=== PATIENT | male | born 1970 | race Caucasian/White ===

== ENCOUNTER 2019-01-05 10:15 | Outpatient (REF) | payer BC, SELFPAY ==
[2019-01-05 21:09] LABS: Anion Gap 8.8 mmol/L (3-11); BUN 14 mg/dL (7-18); CO2 28.2 mmol/L (21.0-32.0); CREATININE 1.04 mg/dL (0.70-1.30); Calcium 8.6 mg/dL (8.5-10.1); Chloride 105 mmol/L (98-107); Cholesterol 154 mg/dL (50-200); Glucose 93 mg/dL (70-100); HDL Cholesterol 31 mg/dL (40-60); LDL CHOLESTEROL 65 mg/dL (<100); Potassium 4.4 mmol/L (3.5-5.1); Sodium 142 mmol/L (136-145); Triglyceride 372 mg/dL (30-150)
== END 2019-01-05 10:35 ==
LOC: NCHCN 10:15
PROVIDERS: PCP Specialist/Technologist Athletic Trainer; Visit Provider Specialist/Technologist Athletic Trainer
DX: Z00.00 Encounter for general adult medical examination without abnormal findings (principal); I10 Essential (primary) hypertension
CPT/HCPCS: 80048; 80061; 83721

== ENCOUNTER 2019-11-16 13:30 | Emergency (ER) | payer BC, SELFPAY ==
[2019-11-16 13:37] VITALS: BP 172/107; PULSE 108; RESP 20; TEMP 36.7; O2SAT 98
--- NOTE | 2019-11-16 13:50 | ED.GENADUL_ITS ---
Discharge Plan Disposition Patient Disposition: HOME Condition: Good Discharge Details Chief Complaint: Orthopedic Clinical Impression: Thumb pain Primary Care Provider: Michele Jacinto ED Provider: Patti Messina Home Meds and New Rx's Prescriptions: Continued ibuprofen 200 MG capsule 800 mg PO PRN PRNRF: 0 cyclobenzaprine 10 MG tablet 10 mg PO TID PRN PRN (Reason: Spasms) Qty: 20 RF: 0 losartan-hydrochlorothiazide 50-12.5 mg Tablet PO DAILY RF: 0 lamotrigine 100 mg Tablet 100 mg PO DAILY RF: 0 Discharge Instructions Instructions: Finger Sprain (ED) Additional Instructions: Encourage rest, ice, elevation. Tylenol and/or ibuprofen as needed for discomfort. May continue with the splint will pain persist. Please call orthopedics to schedule follow-up appointment. If you develop new/worsening symptoms please seek care urgently once again. Stand Alone Forms: Work Release Referrals: Michele Jacinto [Primary Care Provider] - Timothy Bowles MD [ [facility] STAFF PHYSICIAN] - Discharge Data Discharge Date/Time-TO BE ENTERED AT DEPARTURE: 11/16/19 15:33 Medical Decision Making Patient is a 41-year-old nqjns-aeed-sdilgmrb male presenting today with chief complaint of right thumb pain. He reports the pain has been ongoing for the past 6 weeks. States that he fell on his outstretched right hand prior to the onset of discomfort. Since that time, he does have been having pain primarily at the base of the thumb. 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 This does however make difficult for him to be able to remove the top to soda bottle. On exam, patient is resting comfortably. No notable deformity or swelling. No pain elicited with palpation. He has full range of motion. Ligamentously intact. Negative de Quervain's. No pain with axial loading. Patient indicates the palmar base of the thumb extending down towards the snuffbox is area of discomfort. No pain elicited with palpation of the snuf box itself. He does have a incision on the radial side of the wrist from excision of ganglion cyst. This is near the area of discomfort. Plan for imaging. Will continue on navicular view. FINDINGS: No definite acute fracture or dislocation is present. Tiny densities are seen the radial aspect of the navicular. These are indeterminate in acuity. The soft tissues are unremarkable. IMPRESSION: No acute fracture or dislocation. FINDINGS: No acute fracture or dislocation is present. The soft tissues are unremarkable. IMPRESSION: No acute fracture or dislocation Discussed these findings with the patient. I reexamined him I am unable to find a definitive area of his discomfort. He is indicating around the scaphoid areas next tenderness present any pain snuffbox palpation. Again seems to be ligamentously intact, able to go flex and extend against resistance. Does not have findings suggestive here discomfort. However, given the severity of the patient's discomfort and that this is persisted over 6 weeks, will refer to orthopedics. Rest, ice, elevation. We will put the patient in thumb spica to help with comfort. Work note given at patient's request. All of his questions and concerns were addressed and he is in agreement with this plan. HPI General Mode of arrival: ambulatory . Date/Time Provider Initiated Documentation: 11/16/19 13:50 . Limitations to Documentation: no limitations . Information obtained by: patient and RN notes reviewed . History of Present Illness 49 year old M presents to the emergency department with the chief complaint of right thumb pain, described as moderate, with intensity rated at 5. Quality is described as aching, and is localized to the right and upper extremity. Patient reports no radiation. Patient started experiencing this week(s) (6) and it has been constant. Immobilization improves symptom(s), Movement worsens symptoms . Patient notes no other symptoms.. Patient did receive the following treatments prior to arrival, none Related Data Home Medications Medication Instructions Recorded Confirmed cyclobenzaprine 10 mg PO TID PRN PRN #20 tab 08/03/13 11/16/19 ibuprofen 800 mg PO PRN PRN 08/03/13 11/16/19 lamotrigine 100 mg PO DAILY 11/16/19 11/16/19 losartan-hydrochlorothiazide tab PO DAILY 11/16/19 Previous Rx's Medication Instructions Recorded cyclobenzaprine 10 mg PO TID PRN PRN #20 tab 08/03/13 Allergies Allergy/AdvReac Type Severity Reaction Status Date / Time No Known Allergies Allergy Unverified 11/16/19 13:39 General Stated Complaint: Orthopedic DIYA: 4 Review of Systems Constitutional Constitutional: Reports as per HPI, Denies chills, Denies fever(s), Denies headache(s) and Denies weakness ENT Ears, Nose, Mouth, and Throat: Denies headache(s) Cardiovascular Cardiovascular: Reports as per HPI Respiratory Respiratory: Reports as per HPI and Denies cough Musculoskeletal Musculoskeletal: Reports as per HPI and Denies tingling Integumentary/Breasts Skin/Breast: Reports as per HPI, Denies rash and Denies wounds Neurologic Neurologic: Reports as per HPI, Denies headache(s), Denies tingling, Denies paresthesias and Denies weakness [facility] Social History Smoking/Tobacco Use Status: Current every day Tobacco Type: smokeless tobacco Alcohol Intake: current Alcohol Intake frequency: 0-2 drinks per day Drug use: Never Substance use type: does not use Do you feel safe at home: Yes Do you feel safe in your relationship?: Yes Exam Const General: cooperative, healthy appearing, comfortable, no acute distress, well developed and well groomed Nutritional Appearance: average body habitus and well nourished Orientation: alert and awake Resp Effort & Inspection: normal respiratory effort, able to speak in complete sentences and no respiratory distress Cardio Rate: regular rate Rhythm: regular rhythm Skin General skin exam: no rashes or lesions noted Lesions: no lesions Rashes: no rashes Trauma: no lacerations or abrasions Neuro General: alert and awake Cognition: normal cognition Speech: speech normal Gait: normal gait Motor: muscle tone normal throughout Sensory Exam: no sensory deficits noted Extrem Right upper extremity: normal to inspection, full ROM, normal capillary refill, no joint enlargement, wrist Details: normal to inspection and normal ROM; no tenderness and no swelling and hand Details: normal to inspection, normal capillary refill, neuromotor exam normal, neurosensory exam normal, tendon exam normal, vascular exam Details: radial pulse present and normal capillary refill, normal ROM of fingers and no swelling; no tenderness (patient indicates base of thumb as area of pain but none with palpation), no unusual warmth, no swelling, no ecchymosis and no crepitus; no edema Psych Appearance: grossly normal and well kempt Mental Status: mental status grossly normal Speech and Movement: speech and movement normal Course Vital Signs Vital signs: Vital Signs Temperature 36.7 C 11/16/19 13:37 Pulse 108 H 11/16/19 13:37 Respiratory Rate 20 11/16/19 13:37 Blood Pressure 172/107 H 11/16/19 13:37 Pulse Oximetry 98 11/16/19 13:37 Temperature 36.7 C 11/16/19 13:37 Temperature Source Temporal Artery Scan 11/16/19 13:37 Pulse 108 H 11/16/19 13:37 Respiratory Rate 20 11/16/19 13:37 Respiratory Effort Non-Labored 11/16/19 13:41 Blood Pressure 172/107 H 11/16/19 13:37 Blood Pressure Position Sitting 11/16/19 13:37 Pulse Oximetry 98 11/16/19 13:37 Oxygen Delivery Method Room Air 11/16/19 13:37 Oxygen Flow Rate 0 11/16/19 13:37 Pain Level 5 11/16/19 13:41
--- NOTE | 2019-11-16 14:25 | DI.RAD_ITS ---
EXAM: XR WRIST RT LIMITED INDICATION: FALL ON OUTSTRETCHED HAND, PAIN AT BASE OF THUMB COMPARISON: No exams were available for comparison TECHNIQUE: 2D digital imaging was performed. FINDINGS: No definite acute fracture or dislocation is present. Tiny densities are seen the radial aspect of t he navicular. These are indeterminate in acuity. The soft tissues are unremarkable. IMPRESSION: No acute fracture or dislocation.
--- NOTE | 2019-11-16 14:26 | DI.RAD_ITS ---
EXAM: XR THUMB RT INDICATION: FALL ON OUTSTRETCHED HAND, PAIN AT BASE OF THUMB. COMPARISON: No exams were available for comparison TECHNIQUE: 2D digital imaging was performed. FINDINGS: No acute fracture or dislocation is present. The soft tissues are unremarkable. IMPRESSION: No acute fracture or dislocation.
== END 2019-11-16 15:33 | disposition home or self-care (01) ==
PROVIDERS: Emergency Provider Physician Assistant; PCP Specialist/Technologist Athletic Trainer
DX: M25.541 Pain in joints of right hand (principal); W19.XXXA Unspecified fall, initial encounter
CPT/HCPCS: 29125; 99284; 73100; 73140; 99283; L3807

== ENCOUNTER 2021-01-17 15:13 | Outpatient (REF) | payer OTHER, SELFPAY ==
[2021-01-17 16:17] LABS: Anion Gap 8.4 mmol/L (3-11); BUN 17 mg/dL (7-18); CO2 29.6 mmol/L (21.0-32.0); Calcium 9.1 mg/dL (8.5-10.1); Chloride 102 mmol/L (98-107); Cholesterol 189 mg/dL (<200); Glucose 94 mg/dL (74-106); HDL Cholesterol 32 mg/dL (40-60); Sodium 140 mmol/L (136-145); Triglyceride 592 mg/dL (<150)
[2021-01-17 16:29] LABS: LDL CHOLESTEROL 69 mg/dL (<100)
== END 2021-01-17 15:14 | disposition home or self-care (01) ==
LOC: NCHCN 15:13
PROVIDERS: PCP Specialist/Technologist Athletic Trainer; Visit Provider Nurse Practitioner Family
DX: I10 Essential (primary) hypertension (principal)
CPT/HCPCS: 80048; 80061; 83721

== ENCOUNTER 2021-01-23 01:19 | Outpatient (CLI) | payer OTHER, SELFPAY ==
--- NOTE | 2021-01-23 | ETT_ITS ---
APPROVED REPORT Exam: Exercise Treadmill Patient Location: Out-Patient Room/Bed: Stress Nurse: Nadeen Childs RN Ordering Provider:BREANNA CALLEJAS, Contact Number: [phone] BMI: 30.55 Baseline Rhythm: Sinus Rhythm Indications: Chest tightness, hypertension, h/o hypertriglyceridemia Medical History Medical History: Hypertension, headaches Cardiac Medications: Losartan, hydrochlorothiazide, lamotrigine Allergies: NKA Cardiac Risk Factors: Hypertension Previous Cardiac Procedures: None Pretest Chest Pain Characteristics: Chest tightness 3/, pt's baseline Exercise History: Sedentary Physical Disabilities: None Lung Sounds: Clear to auscultation Heart Sounds: Regular Stress Test Details Rest Stress HR Resting HR Supine: 94 bpm Max Heart Rate (APMHR): 171 bpm Resting HR Standin bpm Target HR (85% APMHR): 145 bpm Max HR Achieved: 143 bpm % of APMHR: 83 Recovery HR: 92 bpm HR response to stress: Normal HR response to stress BP Resting BP Supine: 142/84 mmHg Resting BP Standin/90 mmHg Max BP: 176/84 mmHg Recovery BP: 148/90 mmHg BP response to stress: Normal blood pressure response to stress. ECG Resting ECG: Sinus Rhythm Ectopy: None Stress ECG: Sinus Tachycardia ST Change: No significant ST segment changes noted Arrhythmia: None Recovery ECG: Sinus Rhythm Recovery ST Change: No significant ST segment changes noted Recovery Arrhythmia: None Clinical Reason for Termination: Chest pain/Anginal equivalent Stress Symptoms: Chest pain Exercise duration: 6 min45 sec Highest Stage Reached: 3 Exercise capacity: 8.19 METs Luther Treadmill Score: -2 Rate Pressure Product: [id number] Stress ECG Conclusion 1. The patient exercised for 7 minutes (8 METS). 2. The patient had normal blood pressure response to exercise. 3. The patient reached 83% of maximal predicted heart rate which is just below the goal of 85%. Rate -pressure product was 23,000 representing a moderate intensity stress. 4. At this level of stress, there were no changes in the ECG suggestive of ischemia. The patient, zach silveira, developed exercise limiting chest pain for which the test was stopped. Luther Treadmill Score is -2 which is Moderate risk. Stress Test Summary STAGE Time (mins) Speed (mph) Grade (%) HR BP SYMPTOMS METS Supine 94 142/84 chest tightness 3/10 Standing 100 138/90 1 3 1.7 10 121 140/88 4.6 2 6 2.5 12 141 162/84 sharp chest pain 6/10 7 3 9 3.4 14 143 10.2 1 min recovery 106 176/84 chest tightness 3/10 3 min recovery 103 160/88 6 min recovery 92 148/90 Pt reported baseline chest tightness 3/10. During stage 3 of exercise pt reached for his chest and c/ o sharp pain 6/10. Exercise test stopped. During first minute of recovery pt reported symptom resolve d back to baseline of 3/10 chest tightness.
== END 2021-01-23 01:39 ==
PROVIDERS: PCP Nurse Practitioner Family; Visit Provider Nurse Practitioner Family
DX: R07.89 Other chest pain (principal); I10 Essential (primary) hypertension
CPT/HCPCS: 93017

== ENCOUNTER 2021-01-31 20:23 | Outpatient (REF) | payer OTHER, SELFPAY ==
[2021-01-31 19:57] LABS: ALT 80 U/L (16-63); AST 44 U/L (15-37); Albumin 4.3 g/dL (3.4-5.0); Alkaline Phosphatase 73 U/L (46-116); Bilirubin, Direct 0.3 mg/dL (0.0-0.2); TSH 4.85 uIU/mL (0.36-3.74); Total Protein 8.1 g/dL (6.4-8.2)
== END 2021-01-31 20:24 | disposition home or self-care (01) ==
LOC: NCHCN 20:23
PROVIDERS: PCP Nurse Practitioner Family; Visit Provider Nurse Practitioner Family
DX: E80.4 Gilbert syndrome (principal); R07.89 Other chest pain
CPT/HCPCS: 80076; 84443

== ENCOUNTER 2021-02-20 13:09 | Outpatient (REF) | payer OTHER, SELFPAY ==
[2021-02-20 15:50] LABS: TSH (W/Ref FT4) 8.33 uIU/mL (0.36-3.74)
[2021-02-20 17:47] LABS: FREE T4 0.87 ng/dL (0.76-1.46)
== END 2021-02-20 13:10 | disposition home or self-care (01) ==
LOC: NCHCN 13:09
PROVIDERS: PCP Nurse Practitioner Family; Visit Provider Nurse Practitioner Family
DX: R94.6 Abnormal results of thyroid function studies (principal)
CPT/HCPCS: 84439; 84443

== ENCOUNTER 2021-02-23 00:41 | Outpatient (CLI) | payer OTHER, SELFPAY ==
--- NOTE | 2021-02-23 08:21 | DI.US_ITS ---
APPROVED REPORT EXAM: Comprehensive 2D, Doppler, and color-flow Echocardiogram Patient Location: Out-Patient Adoption Agent: Amelia Edwards RDCS (AE) Indications: Chest pain, Abnormal ETT, Cardiac Catheterization Other Information Study Quality: Good Conclusion Left Ventricle : The left ventricle is normal size. The left ventricular systolic function is normal. The left ventricular ejection fraction is within the normal range. There is normal left ventricular wall thickness. There is normal LV segmental wall motion. The left ventricular diastolic function is normal. LVEF is 60%. Right Ventricle : The right ventricle is normal size. The right ventricular systolic function is norm al. The RVSP is 21.8mmHg. Atria : The left atrium size is normal. The right atrium size is normal. Valves: No hemodynamically significant valvular lesions. Great Vessels : The aortic root is normal in size. The ascending aorta is normal in size. Aortic arch is normal in caliber. IVC is normal in size and collapses >50% with inspiration. Wall motion Left Ventricle The left ventricle is normal size. The left ventricular systolic function is normal. The left ventric ular ejection fraction is within the normal range. There is normal left ventricular wall thickness. T here is normal LV segmental wall motion. The left ventricular diastolic function is normal. There is no ventricular septal defect visualized. LVEF is 60%. Right Ventricle The right ventricle is normal size. The right ventricular systolic function is normal. The RVSP is 21 .8mmHg. Atria The left atrium size is normal. The right atrium size is normal. The interatrial septum is intact wit h no evidence for an atrial septal defect. Aortic Valve The aortic valve is normal in structure. Aortic valve is trileaflet. There is no aortic valvular sten osis. No aortic regurgitation is present. Mitral Valve The mitral valve is normal in structure. No evidence of mitral valve stenosis. Trace mitral regurgita tion. Tricuspid Valve The tricuspid valve is normal in structure. There is no tricuspid valve stenosis. Trace tricuspid reg urgitation. Pulmonic Valve The pulmonary valve is normal in structure. There is no pulmonic valvular stenosis. Trace pulmonic re gurgitation. Great Vessels The aortic root is normal in size. The ascending aorta is normal in size. Aortic arch is normal in ca liber. IVC is normal in size and collapses >50% with inspiration. Pericardium There is no pericardial effusion. 2D Dimensions IVSD d PLAX 0.87 cm M: 0.6-1.2 LV Vol A2C d MOD 93.8 mL LVPW d PLAX 0.89 cm M: 0.6 - 1.2 LV Vol A4C d MOD 105.8 mL LVID d PLAX 4.61 cm M: 4.2 - 5.8 LA vol/ BSA A2C s A-L 16.2 mL/m2 LVDs 3.10 cm M: 2.5 - 4.0 LA vol/ BSA A4C s A-L 11.5 mL/m2 Ao Root d 2.57 cm M: 3.1 - 3.7 LA Vol/ BSA Biplane s A-L 13.7 mL/m2 RA Area A4C 11.77 cm2 LA Area A4C s MOD 11.29 cm2 RA Vol/ BSA A4C s A-L 12.3 mL/m2 LA Area A2C s MOD 13.46 cm2 Ao Asc Diam d 3.00 cm M: 2.6 - 3.4 LV EF A4C MOD 60.0 % LV EF Teichholz 60.0 % LV EF A2C MOD 60.2 % LVEF (Guadarrama's) 58.23 % M: 52 - 72 LV EF Biplane MOD 58.2 % LV Volume 76.13 mL M: 62 - 150 SV 59.62 mL LV Volume Index 37.13 mL/m2 M: 34 - 74 SV Index 29.05 mL/m2 LV Vol Biplane MOD 102.4 mL FS 31.85 % M-Mode TAPSE 2.17 cm (M/F) >1.7 LV Diastology MV E' medial 0.077 (>0.07 m/s) E/A Ratio 1.1 LV E/e MED 7.30 (<14) MV E Vmax 0.56 (0.4-1.3 m/s) MV E' lateral 0.095 (>0.1 m/s) MV A Vmax 0.50 (0.4-1.3 m/s) LV E/e LAT 5.85 (<14) MV E/A Ratio 1.05 MV E/E' medial 7.31 MV E/E' lateral 5.88 Aortic Valve LVOT Area 3.02 cm2 AoV Area Vmax 2.19 cm2 LVOT Vmax 0.99 m/s AoV Area/ BSA (Vmax) 1.07 cm2/m2 LVOT Mean Ld. 0.61 m/s DEMAR Mean Ld. 1.85 cm2 LVOT Peak Grad 3.9 mmHg DEMAR Mean Ld. Index 0.90 cm2/m2 LVOT Mean Grad 1.8 mmHg LVOT VTI 0.183 m LVOT Diam s 1.95 cm AoV Vmax 1.36 m/s Velocity Ratio 0.72 AoV Mean Ld. 0.99 m/s AoV Peak Grad 7.4 mmHg LVOT SV 55.35 mL AoV Mean Grad 4.2 mmHg AoV VTI 0.249 m AoV Area VTI 2.22 cm2 AoV Area/ BSA (VTI) 1.08 cm/m2 Mitral Valve MV DT 309 (160-240 msec) MV PHT 90 msec MV Area PHT 2.45 cm2 Pulmonary Valve PV Vmax 1.41 (0.5-1.5 m/s) RVOT Peak Gr. 1.84 mmHg PV Peak Grad 8.0 mmHg RVOT Mean Gr. 0.90 mmHg PV Mean Grad 3.8 mmHg RVOT VTI 0.134 m PV VTI 0.231 m RVOT Vmax 0.68 m/s Tricuspid Valve TR Peak Grad 18.8 mmHg TR Vmax 2.17 m/s RA Pressure 3.00 mmHg RVSP (TR) 21.8 mmHg
== END 2021-02-23 01:01 ==
PROVIDERS: PCP Nurse Practitioner Family; Visit Provider Nurse Practitioner Family
DX: R07.9 Chest pain, unspecified (principal); R94.39 Abnormal result of other cardiovascular function study; Z98.61 Coronary angioplasty status
CPT/HCPCS: 93306

== ENCOUNTER 2021-05-08 14:56 | Outpatient (REF) | payer OTHER, SELFPAY ==
[2021-05-08 20:30] LABS: TSH (W/Ref FT4) 3.22 uIU/mL (0.36-3.74)
== END 2021-05-08 14:57 | disposition home or self-care (01) ==
LOC: NCHCN 14:56
PROVIDERS: PCP Nurse Practitioner Family; Visit Provider Nurse Practitioner Family
DX: R94.6 Abnormal results of thyroid function studies (principal)
CPT/HCPCS: 84443

== ENCOUNTER 2022-05-14 16:12 | Outpatient (REF) | payer BC, SELFPAY ==
[2022-05-14 15:28] LABS: Anion Gap 10.7 mmol/L (3-11); BUN 15 mg/dL (7-18); CO2 27.3 mmol/L (21.0-32.0); CREATININE 1.3 mg/dL (0.70-1.30); Calcium 9.3 mg/dL (8.5-10.1); Chloride 101 mmol/L (98-107); FREE T4 0.86 ng/dL (0.76-1.46); Glucose 144 mg/dL (74-106); Potassium 3.8 mmol/L (3.5-5.1); Sodium 139 mmol/L (136-145); TSH 5.64 uIU/mL (0.36-3.74)
== END 2022-05-14 16:13 | disposition home or self-care (01) ==
LOC: NCHCN 16:12
PROVIDERS: PCP Nurse Practitioner Family; Visit Provider Nurse Practitioner Family
DX: I10 Essential (primary) hypertension (principal)
CPT/HCPCS: 80048; 84439; 84443

== ENCOUNTER 2022-07-30 15:08 | Outpatient (REF) | payer BC, SELFPAY ==
[2022-07-30 19:37] LABS: TSH (W/Ref FT4) 4.36 uIU/mL (0.36-3.74)
[2022-07-30 19:53] LABS: FREE T4 0.93 ng/dL (0.76-1.46)
== END 2022-07-30 15:09 | disposition home or self-care (01) ==
LOC: NCHCN 15:08
PROVIDERS: PCP Nurse Practitioner Family; Visit Provider Nurse Practitioner Family
DX: R94.6 Abnormal results of thyroid function studies (principal)
CPT/HCPCS: 84439; 84443

== ENCOUNTER 2022-11-13 14:48 | Outpatient (REF) | payer BC, SELFPAY ==
[2022-11-14 16:21] LABS: Lamotrigine 2.3 mcg/mL (3.0-15.0)
== END 2022-11-13 14:49 | disposition home or self-care (01) ==
LOC: NCHCN 14:48
PROVIDERS: PCP Nurse Practitioner Family; Visit Provider Nurse Practitioner Family
DX: Z51.81 Encounter for therapeutic drug level monitoring (principal)
CPT/HCPCS: 80175

== ENCOUNTER 2022-11-15 01:17 | Outpatient (CLI) | payer BC, SELFPAY ==
--- NOTE | 2022-11-15 | DI.RAD_ITS ---
Exam(s) XR CERVICAL SPINE COMP 4-5V EXAM: XR CERVICAL SPINE COMP 4-5V CLINICAL HISTORY: NECK STIFFNESS, M43.6, NECK PAIN, M542,CHRONIC,? OA. TECHNIQUE: 2D digital imaging was performed. COMPARISON: No exams were available for comparison FINDINGS: Seven views: There is no evidence of fracture, listhesis, nor offset of the spinal laminar line. All the disc spa jaz exhibit normal height although there is mild anterior osseous lipping at C 5-6 noted. There are no Luschka joint osteophytes evident. No obvious facet arthropathy. There appear to be bilateral C7 cervical ribs. IMPRESSION: DATA REPOSITORY: RADIATION DOSE DELIVERED:
== END 2022-11-15 01:37 ==
LOC: DI 01:18
PROVIDERS: PCP Nurse Practitioner Family; Visit Provider Nurse Practitioner Family
DX: M43.6 Torticollis (principal); M54.2 Cervicalgia
CPT/HCPCS: 72050

== ENCOUNTER 2022-11-27 01:36 | Outpatient (CLI) | payer BC, SELFPAY ==
--- NOTE | 2022-11-27 | DI.US_ITS ---
Exam(s) US BREAST LT COMPLETE MAMMO DIAGNOSTIC BI EXAM: MAMMO DIAGNOSTIC BI and U/S breast LT complete CLINICAL HISTORY: DIAGNOSTIC, LT BREAST PAIN, N64.4. TECHNIQUE: Craniocaudal and mediolateral oblique Full Field Digital Mammography views with Computer Aided Diagnosis followed by Tomosynthesis and left breast ultrasound. COMPARISON: No priors for comparison. FINDINGS: Mammography/Tomosynthesis: Masses/Architectural Distortion: There is a small amount of breast tissue in the retroareolar region bilaterally, left greater than right. This is consistent with mild gynecomastia. Microcalcifictions: No suspicious pleomorphic-type are seen. Skin Thickening/Nipple Retraction: None. Complete left breast US: Echotexture: Normal appearance of the glandular tissue. Shadowing: No suspicious foci. Cyst: None. Solid lesions: None seen. Ductal dilation: None. IMPRESSION: 1. No evidence of malignancy is noted. 2. Findings are most suggestive of bilateral gynecomastia, left greater than right. 3. The findings were discussed with the patient on the date of the examination. BI-RADS Category 2 - Benign Findings Breast Density - Category A - Almost entirely fatty Breast density Category C or D implies that the patient has dense breast tissue. Dense breast tissue can make it harder to find cancer on a mammogram. Dense breast tissue is also associated with an incr eased risk of breast cancer. This information about the result of the mammogram report was provided to the patient to raise their awareness. Use this report when you speak with the patient about their risks for breast cancer, which includes their family history. At that time, you may recommend additional screening tests (Ultrasoun d or MRI) as these tests may add significant information. A negative radiographic report should not delay biopsy if a dominant or clinically suspicious mass is present. Up to ten percent of cancers are not identified on mammography. A negative report may reinforce clinical impression. Adenosis and dense breasts may obscure an underlying neoplasm. False positive reports average 6 to 10%. Patient will receive a letter notifying them of these results.
== END 2022-11-27 01:56 ==
LOC: DI 01:36
PROVIDERS: PCP Nurse Practitioner Family; Visit Provider Nurse Practitioner Family
DX: N64.4 Mastodynia (principal)
CPT/HCPCS: 76642; 77062; 77066; G0279

== ENCOUNTER 2022-12-21 13:30 | Outpatient (REF) | payer BC, SELFPAY ==
[2022-12-21 15:54] LABS: TSH (W/Ref FT4) 8.46 uIU/mL (0.36-3.74)
[2022-12-21 16:33] LABS: HCG Qual (Serum) Negative
[2022-12-21 22:57] LABS: LH 2.9 mIU/mL (1.5-9.3)
[2022-12-27 12:05] LABS: Testosterone, Free 6.24 ng/dL (4.06-15.6); Testosterone, Total 152 ng/dL (240-950)
[2022-12-28 16:47] LABS: Estradiol, Mass Spectrometry 19 pg/mL (10-40); Estrone 49 pg/mL (10-60)
== END 2022-12-21 13:31 | disposition home or self-care (01) ==
LOC: NCHCN 13:30
PROVIDERS: PCP Nurse Practitioner Family; Visit Provider Nurse Practitioner Family
DX: R42 Dizziness and giddiness (principal); N62 Hypertrophy of breast
CPT/HCPCS: 84402; 84403; 82670; 82679; 83002; 84439; 84443; 84703

== ENCOUNTER 2023-01-11 13:54 | Outpatient (REF) | payer BC, SELFPAY ==
[2023-01-11 15:04] LABS: Iron 111 ug/dL (65-175)
[2023-01-14 08:53] LABS: Dexamethasone Suppression 2.2 ug/dL
[2023-01-14 10:30] LABS: Prolactin 4.6 ng/mL (2.1-17.7)
[2023-01-14 11:30] LABS: Transferrin 266 mg/dL (201-352)
== END 2023-01-11 13:55 | disposition home or self-care (01) ==
LOC: NCHCN 13:54
PROVIDERS: PCP Nurse Practitioner Family; Visit Provider Nurse Practitioner Family
DX: E29.1 Testicular hypofunction (principal)
CPT/HCPCS: 82533; 83540; 84146; 84466

== ENCOUNTER 2023-01-25 12:42 | Outpatient (REF) | payer BC, SELFPAY ==
--- OUTSIDE RECORDS SUMMARY | 2023-01-25 12:50 | XMS_ITS ---
Author Name Jenniefr Briceno Address [address] [place] [phone] Organization [facility] Address [address], [place] [id number] Care Team Providers Care Stitch Rubber Name Role Phone Jennifer Briceno Unavailable [phone] PROBLEMS Type Condition ICD9-CM Code [id number] Code Onset Dates Condition Status SNOMED Code Problem Asymmetrical sensorineural hearing loss H90.3 Active 655710717 Problem Tinnitus, left H93.12 Active [id number] Problem Referred otalgia of left ear H92.02 Active [id number] 7 ALLERGIES No Known Allergies ENCOUNTERS Encounter Location Date Diagnosis [facility] [address] [place] [phone] May, Insect bite (nonvenomous) of left ear, initial encounter S00.462A and Bitten or stung by nonvenomous insect and other nonvenomous arthropods, initial encounter W57.XXXA [facility] [address] [place] [phone] May, Asymmetrical sensorineural hearing loss H90.3 [facility] [address] [place] [phone] May, Asymmetrical sensorineural hearing loss H90.3 ; Tinnitus, left H93.12 and Referred otalgia of left ear H92.02 [facility] [place] [address], [address] [place], [place] [id number] March, IMMUNIZATIONS No Known Immunizations SOCIAL HISTORY Never Assessed REASON FOR REFERRAL FUNCTIONAL STATUS PLAN OF CARE Activity Details VITAL SIGNS Height 68 in 2022-06-11 Weight 207 lbs 2022-06-11 Weight 200 lbs 2021-06-01 Temperature 96.4 degrees Fahrenheit Heart Rate 88 /min 2022-06-11 Heart Rate 90 /min 2021-06-01 Oximetry 99 2022-06-11 Oximetry 99 2021-06-01 Respiratory Rate 16 /min 2021-06-01 BMI 31.47 kg/m2 2022-06-11 Blood pressure systolic 155 mm Hg Blood pressure diastolic 98 mm Hg 2022-05 MEDICATIONS Medication Instructions Dosage Frequency Start Date End Date Duration Status Amitriptyline HCl 25 MG Orally Once a day PRN 1 tablet at bedtime Not-Sandeep ing Cyclobenzaprine HCl 10 MG Orally Once a day PRN 1 tablet at bedtime as needed Active levothyroxine sodium 25MCG ORALLY ONCE A WEEK 1 tablet Not-Sandeep ing Amitriptyline HCl 100 MG Orally Once a day 1 tablet at bedtime 24h 30 day(s) Active Metoprolol Succinate 100 MG Orally Once a day 1 capsule 24h 30 day(s) Active Losartan Potassium 100 MG Orally Once a day 1 tablet 24h 30 day(s) Active Losartan Potassium 50 MG Orally Once a day 1 tablet 24h Not-Sandeep ing Rizatriptan Benzoate 10 MG Orally Once a day 1 tablet 24h 1 day(s) Active Metoprolol Succinate 50 MG Orally Once a day 1 capsule 24h Not-Sandeep ing Losartan Potassium 25 MG Orally Once a day 1 tablet 24h Not-Sandeep ing Levothyroxine Sodium 50 MCG Orally Once a day 1 tablet in the morning on an empty stomach 24h 30 day(s) Active Mometasone Furoate 50 MCG/ACT Nasally Twice a day as directed 12h Not-Sandeep ing lamoTRIgine 100 MG Orally Once a day 1 tablet 24h Active Omeprazole 20 MG Orally Once a day 1 capsule 30 minutes before morning meal 24h 30 day(s) Active hydroCHLOROthiazide 25 MG Orally Once a day 1 tablet 24h Active PROCEDURES Procedure Date Ordered Result Body Site COMPREHENSIVE AUDIOMET THRESH AND SPEECH June 01, 2021 RESULTS No Results REASON FOR VISIT luis a ear pain, pt reports that he thought he was bit by a deer fly near left ear, symptoms started 5days ago, experiencing ear pain and migraine headache, AUD audio, Left-sided tinnitus, Intermittentbrief otalgia on the left, Asymmetric sensorineural hearing loss, Chart preload Insurance Providers Health Insurance Type Health Plan Insurance Address Health Plan Insurance Phone Health Plan Insurance Name Health Plan Coverage Dates Member ID Patient Relationship to Subscriber Patient Address Patient Phone Patient Name Patient Date of Subscriber ID Subscriber Name Subscriber Date of Group No [place] [address] [facility] [id number] [place] self Reg [place] [id number] [employer] [address] [place] [address] [employer] self Reg [place] [id number] [facility] - DO NOT BILL (Write Off) [address] [facility] [id number] [facility] - DO NOT BILL (Write Off) self Reg soliman [id number]
[2023-01-25 16:19] LABS: FREE T4 1.07 ng/dL (0.76-1.46)
[2023-01-25 20:42] LABS: TSH 5.74 uIU/mL (0.36-3.74)
[2023-01-25 23:02] LABS: LH 3.5 mIU/mL (1.5-9.3)
[2023-02-01 12:23] LABS: Testosterone, Free 7.44 ng/dL (4.06-15.6); Testosterone, Total 165 ng/dL (240-950)
== END 2023-01-25 12:43 | disposition home or self-care (01) ==
LOC: NCHCN 12:42
PROVIDERS: PCP Nurse Practitioner Family; Visit Provider Nurse Practitioner Family
DX: E29.1 Testicular hypofunction (principal); R94.6 Abnormal results of thyroid function studies
CPT/HCPCS: 84402; 84403; 83002; 84439; 84443

== ENCOUNTER 2023-01-28 18:32 | Outpatient (REF) | payer BC, SELFPAY ==
[2023-01-30 19:27] LABS: Cortisol, U 31 mcg/24 h (3.5-45); Urine Volume 2200 mL
== END 2023-01-28 18:33 | disposition home or self-care (01) ==
LOC: NCHCN 18:32
PROVIDERS: PCP Nurse Practitioner Family; Visit Provider Nurse Practitioner Family
DX: E29.1 Testicular hypofunction (principal)
CPT/HCPCS: 81050; 82530; 83789

== ENCOUNTER 2023-03-08 00:47 | Outpatient (CLI) | payer BC, SELFPAY ==
--- NOTE | 2023-03-08 | DI.MRI_ITS ---
Exam(s) MR BRAIN PITUITARY WO/W EXAM: MR BRAIN PITUITARY WO/W CLINICAL HISTORY: LOW TESTOSTERONE LEVEL, E29.1, HX TRAUMATIC BRAIN INJURY TECHNIQUE: Multiplanar multisequence MRI of the brain was performed. Both noninfused and contrast i nfused sequences were performed. Additional dedicated pituitary fossa sequences were performed. IV Contrast injected was 15 cc Dotarem. COMPARISON: No exams were available for comparison FINDINGS: PITUITARY GLAND: Pituitary gland size is normal. No evidence of pituitary mass. No evidence of empt y sella syndrome. Cavernous sinuses appear symmetrical. No mass in the suprasellar cistern. Optic chiasm appears unremarkable. No aneurysms evident. CEREBRAL PARENCHYMA: No evidence of intracranial hemorrhage, mass effect nor shift of midline structu re. No extraaxial fluid collections. Ventricles are not enlarged nor shifted. There is no significant focal signal abnormality in the cerebellar hemispheres nor within the nisha, m idbrain, and thalami. There is no abnormal signal abnormality in the periventricular white matter. 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 There is no evidence of hemorrha ge at this time. No restricted diffusion. No abnormal enhancement in these regions of the frontal lobes and there are no ring enhancing lesions in the brain nor abnormal meningeal enhancement. There are no ring enhancing lesions in the brain. There is no abnormal meningeal enhancement. FLOW VOIDS: The expected flow void are noted. No evidence of obvious aneurysm nor obvious vascular ma lformation. PARANASAL SINUSES: The visualized paranasal sinuses appear unremarkable. ORBITS: No obvious abnormal findings. IMPRESSION: 1. No evidence of pituitary mass nor other significant findings in the pituitary fossa. 2. Areas of encephalomalacia in both frontal lobes, right larger than left. Probably remote posttrau matic sequelae. 3. There are no ring enhancing lesions in the brain and there is no abnormal meningeal enhancement. DATA REPOSITORY:
[2023-03-08 13:44] LABS: CREATININE 1.1 mg/dL (0.70-1.30); Estimated GFR 81.28 (mL/min/1.73m2)
[2023-03-08] MEDS: Normal Saline Flush 10 ML SYR IVP (13:54)
[2023-03-08] MEDS: Gadoterate meglumine 20 ML SYRINGE 19 ML IVP (13:55)
== END 2023-03-08 01:07 ==
PROVIDERS: PCP Nurse Practitioner Family; Visit Provider Nurse Practitioner Family
DX: E29.1 Testicular hypofunction (principal); Z87.820 Personal history of traumatic brain injury; R42 Dizziness and giddiness; G43.901 Migraine, unspecified, not intractable, with status migrainosus; R94.6 Abnormal results of thyroid function studies
CPT/HCPCS: 70553; 82565

== ENCOUNTER 2023-04-05 14:22 | Outpatient (REF) | payer BC, SELFPAY ==
[2023-04-05 16:03] LABS: TSH 4.37 uIU/mL (0.36-3.74)
== END 2023-04-05 14:23 | disposition home or self-care (01) ==
LOC: NCHCN 14:22
PROVIDERS: PCP Nurse Practitioner Family; Visit Provider Nurse Practitioner Family
DX: R94.6 Abnormal results of thyroid function studies (principal)
CPT/HCPCS: 84443

== ENCOUNTER 2023-04-23 11:26 | Outpatient (CLI) | payer BC, SELFPAY ==
[2023-04-23 12:00] LABS: FREE T4 1.02 ng/dL (0.76-1.46)
[2023-04-24 08:21] LABS: Thyroglobulin Antibody 65 U/mL (<=60); Thyroperoxidase Antibody >1300 U/mL (<=60)
== END 2023-04-23 11:27 | disposition home or self-care (01) ==
LOC: LBO 11:28
PROVIDERS: PCP Nurse Practitioner Family; Visit Provider Internal Medicine Endocrinology, Diabetes & Metabolism
DX: E03.9 Hypothyroidism, unspecified (principal); R94.7 Abnormal results of other endocrine function studies
CPT/HCPCS: 36415; 84439; 86376; 86800

== ENCOUNTER 2023-04-30 15:23 | Outpatient (REF) | payer BC, SELFPAY ==
[2023-05-04 00:06] LABS: Midnight Cortisol <50 ng/dL (<100)
== END 2023-04-30 15:24 | disposition home or self-care (01) ==
LOC: LBN 15:23
PROVIDERS: PCP Nurse Practitioner Family; Visit Provider Internal Medicine Endocrinology, Diabetes & Metabolism
DX: E03.9 Hypothyroidism, unspecified (principal); R94.7 Abnormal results of other endocrine function studies
CPT/HCPCS: 82530

== ENCOUNTER 2023-05-14 10:32 | Outpatient (REF) | payer BC, SELFPAY ==
[2023-05-22 18:12] LABS: Midnight Cortisol <50 ng/dL (<100)
== END 2023-05-15 15:19 | disposition home or self-care (01) ==
LOC: LBN 10:32
PROVIDERS: PCP Nurse Practitioner Family; Visit Provider Internal Medicine Endocrinology, Diabetes & Metabolism
DX: R94.7 Abnormal results of other endocrine function studies (principal)
CPT/HCPCS: 82530

== ENCOUNTER 2023-05-31 15:13 | Outpatient (REF) | payer BC, SELFPAY ==
[2023-05-31 16:04] LABS: Cholesterol 249 mg/dL (<200); Glucose 152 mg/dL (74-106); HDL Cholesterol 30 mg/dL (40-60); Triglyceride 891 mg/dL (<150)
[2023-05-31 16:15] LABS: LDL CHOLESTEROL 85 mg/dL (<100)
== END 2023-05-31 15:14 | disposition home or self-care (01) ==
LOC: NCHCN 15:13
PROVIDERS: PCP Nurse Practitioner Family; Visit Provider Nurse Practitioner Family
DX: E03.9 Hypothyroidism, unspecified (principal); E78.1 Pure hyperglyceridemia; E29.1 Testicular hypofunction; R73.09 Other abnormal glucose; R94.6 Abnormal results of thyroid function studies
CPT/HCPCS: 80061; 82947; 83721; 84439; 84443

== ENCOUNTER 2023-07-29 15:02 | Outpatient (REF) | payer BC, SELFPAY ==
[2023-07-29 16:09] LABS: ALT 73 U/L (16-63); AST 34 U/L (15-37); HDL Cholesterol 38 mg/dL (40-60); LDL CHOLESTEROL 42 mg/dL (<100); TSH 3.38 uIU/mL (0.36-3.74)
[2023-07-29 16:49] LABS: Creatine Kinase 243 U/L (39-308); FREE T4 0.76 ng/dL (0.76-1.46)
== END 2023-07-29 15:03 | disposition home or self-care (01) ==
LOC: NCHCN 15:02
PROVIDERS: PCP Nurse Practitioner Family; Visit Provider Nurse Practitioner Family
DX: I10 Essential (primary) hypertension (principal); E78.1 Pure hyperglyceridemia; R94.6 Abnormal results of thyroid function studies
CPT/HCPCS: 82550; 83721; 83036; 83718; 84439; 84443; 84450; 84460

== ENCOUNTER 2023-11-04 14:09 | Outpatient (REF) | payer BC, SELFPAY ==
[2023-11-04 16:21] LABS: Anion Gap 12.8 mmol/L (3-11); BUN 18 mg/dL (7-18); CO2 24.2 mmol/L (21.0-32.0); CREATININE 1.1 mg/dL (0.70-1.30); Calcium 9.5 mg/dL (8.5-10.1); Chloride 103 mmol/L (98-107); Estimated GFR 80.77 (mL/min/1.73m2); Glucose 228 mg/dL (74-106); Potassium 3.9 mmol/L (3.5-5.1); Sodium 140 mmol/L (136-145); Triglyceride 683 mg/dL (<150)
[2023-11-04 17:18] LABS: LDL CHOLESTEROL 55 mg/dL (<100)
[2023-11-07 12:41] LABS: Lamotrigine 2.1 mcg/mL (3.0-15.0)
== END 2023-11-04 14:10 | disposition home or self-care (01) ==
LOC: NCHCN 14:09
PROVIDERS: PCP Nurse Practitioner Family; Visit Provider Nurse Practitioner Family
DX: R73.09 Other abnormal glucose (principal); E78.5 Hyperlipidemia, unspecified; I10 Essential (primary) hypertension; F90.8 Attention-deficit hyperactivity disorder, other type; Z51.81 Encounter for therapeutic drug level monitoring; Z79.899 Other long term (current) drug therapy
CPT/HCPCS: 80048; 80175; 83721; 83036; 84478

== ENCOUNTER 2025-02-16 13:10 | Outpatient (REF) | payer OTHER, SELFPAY ==
[2025-02-16 16:47] LABS: Hemoglobin A1C 6.2 % (<5.7)
[2025-02-16 17:04] LABS: ALT 59 U/L (16-63); AST 19 U/L (15-37); Albumin 4.1 g/dL (3.4-5.0); Alkaline Phosphatase 77 U/L (46-116); Anion Gap 13.1 mmol/L (3-11); BUN 18 mg/dL (7-18); Bilirubin, Total 1.5 mg/dL (0.2-1.0); CO2 25.9 mmol/L (21.0-32.0); CREATININE 0.9 mg/dL (0.70-1.30); Calcium 9.8 mg/dL (8.5-10.1); Chloride 104 mmol/L (98-107); Cholesterol 134 mg/dL (<200); Estimated GFR 102.12 (mL/min/1.73m2); Glucose 179 mg/dL (74-106); HDL Cholesterol 39 mg/dL (>or=40); Potassium 4.1 mmol/L (3.5-5.1); Sodium 143 mmol/L (136-145); TSH 3.11 uIU/mL (0.36-3.74); Total Protein 7.3 g/dL (6.4-8.2); Triglyceride 605 mg/dL (<150)
[2025-02-16 17:59] LABS: LDL CHOLESTEROL 33 mg/dL (<100)
[2025-02-16 18:16] LABS: FREE T4 1.07 ng/dL (0.76-1.46)
[2025-02-16 22:20] LABS: PSA, Screening 0.5 ng/mL (<=3.5)
[2025-03-03 10:29] LABS: CK-BB 0 % (0); CK-MB 0 % (0-3); CK-MM 100 % (97-100); Macro Type 1 0 % (NotObserved); Macro Type 2 0 % (NotObserved)
== END 2025-02-16 13:11 | disposition home or self-care (01) ==
LOC: NCHCN 13:10
PROVIDERS: PCP Family Medicine; Visit Provider Family Medicine
DX: R73.03 Prediabetes (principal); I10 Essential (primary) hypertension; E03.9 Hypothyroidism, unspecified; Z00.00 Encounter for general adult medical examination without abnormal findings
CPT/HCPCS: 80053; 80061; 82550; 82552; 83721; 84153; 83036; 84439; 84443

== ENCOUNTER 2025-09-10 18:33 | Outpatient (REF) | payer OTHER, SELFPAY ==
[2025-09-10 19:16] LABS: Triglyceride 832 mg/dL (<150)
[2025-09-10 20:00] LABS: LDL CHOLESTEROL 59 mg/dL (<100)
== END 2025-09-10 18:34 | disposition home or self-care (01) ==
LOC: NCHCN 18:33
PROVIDERS: PCP Family Medicine; Visit Provider Family Medicine
DX: E78.2 Mixed hyperlipidemia (principal)
CPT/HCPCS: 83721; 84478